=== PATIENT | male | born 1950 | race Hispanic/Latino ===

== ENCOUNTER 2017-12-22 10:19 | Inpatient (IN) | payer OTHER ==
[~2017-12-22] VITALS: Ht 198.1 cm; Wt 113.0 kg
[~2017-12-22 10:19] MED LIST: DIGO0.25 PO; DOXA1TAB2 PO; TAMS0.4C32 PO
[2017-12-22] MEDS ORDERED: ZOSYN 3.375GM+NS 50ML 50 ML IV ONE (12:13)
[2017-12-22 12:30] LABS: BASOPHILS % (AUTO) 0.9 % (0.0-5.0); EOSINOPHILS % (AUTO) 4.3 % (0.0-8.0); HEMATOCRIT 44.3 % (42-54); LYMPHOCYTES % (AUTO) 12.1 % (21.0-51.0); MEAN CORPUSCULAR HEMOGLOBIN 30.8 pg (27.0-33.0); MEAN CORPUSCULAR HGB CONC 34.6 g/dL (32.0-36.0); MEAN CORPUSCULAR VOLUME 89.1 fL (79-99); MONOCYTES % (AUTO) 5.6 % (3.0-13.0); NEUTROPHILS % (AUTO) 77.1 % (40.0-77.0); PLATELET COUNT (AUTO) 228 K/uL (130-400); RED BLOOD CELL COUNT(AUTO) 4.98 MIL/uL (4.50-6.20); RED CELL DISTRIBUTION WIDTH 13.4 % (11.0-15.5); WHITE BLOOD COUNT (AUTO) 11.1 K/uL (4.8-10.8)
[2017-12-22 12:45] LABS: POTASSIUM 4.3 mmol/L (3.5-5.1)
[2017-12-22 12:49] LABS: TOTAL PROTEIN, SERUM 7.4 g/dL (6.0-8.3)
[2017-12-22] MEDS ORDERED: VANCOMYCIN 1GM+NS 250ML 250 ML IV ONE (16:32)
[2017-12-22 17:33] VITALS: BP 148/74
[2017-12-22] MEDS ORDERED: LEVO500T89 PO (18:08)
[2017-12-22] MEDS ORDERED: METF500T6 PO (18:08)
[2017-12-22] MEDS ORDERED: WARF6TAB49 PO (18:08)
[2017-12-22] MEDS ORDERED: SIMV20TA6 PO (18:08)
[2017-12-22] MEDS ORDERED: METO-391 PO (18:08)
[2017-12-22] MEDS ORDERED: TRAM50TA4 PO (18:09)
[2017-12-22] MEDS ORDERED: SODIUM CHLORIDE 0.9% 10 ML VIAL IVP PRN (18:30)
[2017-12-22] MEDS ORDERED: VANCOMYCIN PROTOCOL PER PHARMACY IV SCH (18:30)
[2017-12-22] MEDS ORDERED: ACETAMINOPHEN 325 MG TAB PO PRN (18:30)
[2017-12-22 19:58] VITALS: BP 128/85
[2017-12-22] MEDS ORDERED: COMPOUND IV REFRIGERATED 1 EACH IVSOLN MISC PRN (20:00)
[2017-12-22] MEDS ORDERED: GLUCAGON 1MG KIT 1 MG ML IM PRN (20:45)
[2017-12-22] MEDS ORDERED: INSULIN GLARGINE 100 UNITS/ML 10 ML VIAL SQ ONE (20:45)
[2017-12-22] MEDS ORDERED: DEXTROSE 50%-WATER 50 ML DISP.SYRIN IV PRN (20:45)
[2017-12-22] MEDS: METOPROLOL TARTRATE 25 MG TAB PO SCH ×2 (21:00→21:49)
[2017-12-22] MEDS: ZOSYN 3.375GM+NS 50ML 50 ML IV SCH ×2 (21:50→23:32)
[2017-12-22] MEDS: INSULIN HUMULIN R 100 UNIT/ML 3ML SQ SCH (21:55)
[2017-12-22] MEDS: TRAMADOL HCL 50 MG TABLET PO PRN (22:00)
[2017-12-22] MEDS: VANCOMYCIN 1.5 GM in SODIUM CHLORIDE 0.9% 250 ML IV SCH (22:06)
[2017-12-23] VITALS (7 sets, daily range): BP systolic 112–132; BP diastolic 50–89
[2017-12-23] MEDS: TRAMADOL HCL 50 MG TABLET PO PRN ×3 (03:24→15:45)
[2017-12-23] MEDS: ZOSYN 3.375GM+NS 50ML 50 ML IV SCH ×3 (06:47→21:24)
[2017-12-23] MEDS: INSULIN HUMULIN R 100 UNIT/ML 3ML SQ SCH ×5 (06:48→21:31)
[2017-12-23 08:06] LABS: INR 1.15 (0.85-1.15)
[2017-12-23] MEDS: ATORVASTATIN CALCIUM 10 MG TABLET PO SCH (08:25)
[2017-12-23] MEDS: METOPROLOL TARTRATE 25 MG TAB PO SCH ×2 (08:25→21:24)
[2017-12-23] MEDS: VANCOMYCIN 1.5 GM in SODIUM CHLORIDE 0.9% 250 ML IV SCH ×2 (08:26→20:11)
[2017-12-23] MEDS: WARFARIN SODIUM 2 MG TAB PO SCH (15:44)
[2017-12-23] MEDS ORDERED: WARFARIN SODIUM 10 MG TABLET PO SCH (16:00)
[2017-12-23] MEDS: TAMSULOSIN HCL 0.4 MG CAP.ER.24H PO SCH (21:24)
[2017-12-23] MEDS: DOXAZOSIN MESYLATE 2 MG TABLET PO SCH (21:24)
[2017-12-24] MEDS: TRAMADOL HCL 50 MG TABLET PO PRN ×3 (00:39→17:38)
[2017-12-24 03:00] VITALS: BP 132/81
[2017-12-24] MEDS: ZOSYN 3.375GM+NS 50ML 50 ML IV SCH ×3 (04:41→22:53)
[2017-12-24] MEDS: INSULIN HUMULIN R 100 UNIT/ML 3ML SQ SCH ×5 (06:30→22:48)
[2017-12-24 07:00] VITALS: BP 147/71
[2017-12-24] MEDS: VANCOMYCIN 1.5 GM in SODIUM CHLORIDE 0.9% 250 ML IV SCH ×3 (09:00→22:53)
[2017-12-24] MEDS: ATORVASTATIN CALCIUM 10 MG TABLET PO SCH (09:42)
[2017-12-24] MEDS: METOPROLOL TARTRATE 25 MG TAB PO SCH ×2 (09:42→22:52)
[2017-12-24] MEDS ORDERED: VANCOMYCIN 2 GM in SODIUM CHLORIDE 0.9% 500ML 500 ML IV SCH (11:00)
[2017-12-24 12:13] VITALS: BP 118/73
[2017-12-24] MEDS ORDERED: VANCOMYCIN 1.75 GM in SODIUM CHLORIDE 0.9% 250 ML IV ONE (16:00)
[2017-12-24 16:44] VITALS: BP 136/75
[2017-12-24] MEDS: WARFARIN SODIUM 2 MG TAB PO SCH (17:34)
[2017-12-24 20:00] VITALS: BP 157/99
[2017-12-24] MEDS: INSULIN GLARGINE 100 UNITS/ML 10 ML VIAL SQ SCH (22:46)
[2017-12-24] MEDS: TAMSULOSIN HCL 0.4 MG CAP.ER.24H PO SCH (22:52)
[2017-12-24] MEDS: DOXAZOSIN MESYLATE 2 MG TABLET PO SCH (22:52)
[2017-12-24] MEDS ORDERED: INSULIN GLARGINE 100 UNITS/ML 10 ML VIAL SQ ONE (23:07)
[2017-12-24 23:54] VITALS: BP 128/68
[2017-12-25] MEDS ORDERED: VANCOMYCIN 1GM+NS 250ML 250 ML IV SCH
[2017-12-25] MEDS: TRAMADOL HCL 50 MG TABLET PO PRN ×3 (01:13→13:32)
[2017-12-25 04:00] VITALS: BP 109/60
[2017-12-25 05:17] LABS: BASOPHILS % (AUTO) 1.2 % (0.0-5.0); EOSINOPHILS % (AUTO) 8.9 % (0.0-8.0); HEMATOCRIT 41.7 % (42-54); LYMPHOCYTES % (AUTO) 21.4 % (21.0-51.0); MEAN CORPUSCULAR HEMOGLOBIN 31.7 pg (27.0-33.0); MEAN CORPUSCULAR HGB CONC 35.7 g/dL (32.0-36.0); MEAN CORPUSCULAR VOLUME 88.8 fL (79-99); NEUTROPHILS % (AUTO) 62.5 % (40.0-77.0); NUCLEATED RED BLOOD CELLS 0.1 % (0.0-0.19); PLATELET COUNT (AUTO) 259 K/uL (130-400); RED CELL DISTRIBUTION WIDTH 13.1 % (11.0-15.5); WHITE BLOOD COUNT (AUTO) 9.8 K/uL (4.8-10.8)
[2017-12-25] MEDS: ZOSYN 3.375GM+NS 50ML 50 ML IV SCH ×3 (05:27→21:16)
[2017-12-25] MEDS: VANCOMYCIN 1.5 GM in SODIUM CHLORIDE 0.9% 250 ML IV SCH ×3 (05:28→21:16)
[2017-12-25 05:38] LABS: CREATININE 0.8 mg/dL (0.5-1.5); POTASSIUM 3.4 mmol/L (3.5-5.1)
[2017-12-25] MEDS: INSULIN HUMULIN R 100 UNIT/ML 3ML SQ SCH ×4 (06:29→21:35)
[2017-12-25 08:00] VITALS: BP 126/77
[2017-12-25 09:18] LABS: INR 1.29 (0.85-1.15); PROTHROMBIN TIME 13.5 SEC (9.6-11.6)
[2017-12-25] MEDS: METOPROLOL TARTRATE 25 MG TAB PO SCH ×2 (09:51→21:15)
[2017-12-25] MEDS: ATORVASTATIN CALCIUM 10 MG TABLET PO SCH (09:51)
[2017-12-25 11:39] VITALS: BP 120/72
[2017-12-25] MEDS ORDERED: POTASSIUM CHLORIDE 20 MEQ ERTAB PO PRN (14:15)
[2017-12-25] MEDS ORDERED: POTASSIUM CHLORIDE 10% ELIXIR 20 MEQ/15 ML UDCUP PO PRN (14:15)
[2017-12-25] MEDS: WARFARIN SODIUM 2 MG TAB PO SCH (15:19)
[2017-12-25 16:00] VITALS: BP 136/67
[2017-12-25 20:00] VITALS: BP 126/77
[2017-12-25] MEDS: DOXAZOSIN MESYLATE 2 MG TABLET PO SCH (21:14)
[2017-12-25] MEDS: HYDROCODONE/ACETAMINOPHEN 5/325 MG TAB PO PRN (21:14)
[2017-12-25] MEDS: TAMSULOSIN HCL 0.4 MG CAP.ER.24H PO SCH (21:15)
[2017-12-25] MEDS: INSULIN GLARGINE 100 UNITS/ML 10 ML VIAL SQ SCH (21:34)
[2017-12-25 23:46] VITALS: BP 111/59
[2017-12-26] VITALS (23 sets, daily range): BP systolic 102–143; BP diastolic 47–85
[2017-12-26] MEDS: MORPHINE SULFATE 2 MG/ML 1ML SYG IVP PRN ×3 (01:36→16:57)
[2017-12-26] MEDS: ZOSYN 3.375GM+NS 50ML 50 ML IV SCH ×3 (05:04→21:32)
[2017-12-26 05:05] LABS: BASOPHILS % (AUTO) 1.9 % (0.0-5.0); HEMATOCRIT 43.9 % (42-54); LYMPHOCYTES % (AUTO) 18.8 % (21.0-51.0); MEAN CORPUSCULAR HEMOGLOBIN 30.7 pg (27.0-33.0); MEAN CORPUSCULAR HGB CONC 34.4 g/dL (32.0-36.0); MEAN CORPUSCULAR VOLUME 89.4 fL (79-99); MONOCYTES % (AUTO) 6.2 % (3.0-13.0); NEUTROPHILS % (AUTO) 65.1 % (40.0-77.0); PLATELET COUNT (AUTO) 254 K/uL (130-400); RED BLOOD CELL COUNT(AUTO) 4.92 MIL/uL (4.50-6.20); RED CELL DISTRIBUTION WIDTH 13.1 % (11.0-15.5); WHITE BLOOD COUNT (AUTO) 10.6 K/uL (4.8-10.8)
[2017-12-26 05:12] LABS: CREATININE 0.9 mg/dL (0.5-1.5); POTASSIUM 4.3 mmol/L (3.5-5.1)
[2017-12-26] MEDS: VANCOMYCIN 1.5 GM in SODIUM CHLORIDE 0.9% 250 ML IV SCH (06:00)
[2017-12-26] MEDS: INSULIN HUMULIN R 100 UNIT/ML 3ML SQ SCH ×4 (07:30→21:00)
[2017-12-26] MEDS: HONEY 1 APPL/ML TUBE TP SCH (09:00)
[2017-12-26] MEDS: ATORVASTATIN CALCIUM 10 MG TABLET PO SCH (09:04)
[2017-12-26] MEDS: METOPROLOL TARTRATE 25 MG TAB PO SCH ×2 (09:04→22:22)
[2017-12-26 09:41] LABS: INR 1.18 (0.85-1.15); PROTHROMBIN TIME 12.3 SEC (9.6-11.6)
[2017-12-26] MEDS: SODIUM CHLORIDE 0.9% IV SCH ×2 (14:20→21:36)
[2017-12-26] MEDS: VANCOMYCIN 1.25 GM IV SCH ×2 (14:20→21:36)
[2017-12-26] MEDS: WARFARIN SODIUM 2 MG TAB PO SCH (14:23)
[2017-12-26] MEDS ORDERED: MIDAZOLAM HCL 1 MG/ML 2ML VIAL ONE (19:13)
[2017-12-26] MEDS ORDERED: PROPOFOL 10 MG/ML 20ML VIAL IV ONE (19:13)
[2017-12-26] MEDS ORDERED: BUPIVACAINE/PF 0.5% 30ML VIAL ONE (19:13)
[2017-12-26] MEDS ORDERED: FENTANYL CITRATE PF 50 MCG/1 ML 2ML VIAL ONE ×2 (19:13→19:40)
[2017-12-26] MEDS ORDERED: LIDOCAINE HCL-MPF 0.5% 50ML VIAL IJ ONE (19:13)
[2017-12-26] MEDS: TAMSULOSIN HCL 0.4 MG CAP.ER.24H PO SCH (21:33)
[2017-12-26] MEDS: DOXAZOSIN MESYLATE 2 MG TABLET PO SCH (21:33)
[2017-12-26] MEDS: HYDROMORPHONE 1 MG/1 ML AMP IVP PRN (21:43)
[2017-12-26] MEDS: INSULIN GLARGINE 100 UNITS/ML 10 ML VIAL SQ SCH (22:22)
[2017-12-27] VITALS (8 sets, daily range): BP systolic 103–138; BP diastolic 55–84
[2017-12-27] MEDS: HYDROCODONE/ACETAMINOPHEN 5/325 MG TAB PO PRN ×2 (00:37→11:43)
[2017-12-27] MEDS: ZOSYN 3.375GM+NS 50ML 50 ML IV SCH ×3 (05:02→21:49)
[2017-12-27] MEDS: TRAMADOL HCL 50 MG TABLET PO PRN (05:08)
[2017-12-27 05:55] LABS: EOSINOPHILS % (AUTO) 6.4 % (0.0-8.0); HEMATOCRIT 42.3 % (42-54); LYMPHOCYTES % (AUTO) 15.8 % (21.0-51.0); MEAN CORPUSCULAR HEMOGLOBIN 31.2 pg (27.0-33.0); MEAN CORPUSCULAR HGB CONC 34.7 g/dL (32.0-36.0); MEAN CORPUSCULAR VOLUME 89.8 fL (79-99); NEUTROPHILS % (AUTO) 70.8 % (40.0-77.0); PLATELET COUNT (AUTO) 270 K/uL (130-400); RED BLOOD CELL COUNT(AUTO) 4.71 MIL/uL (4.50-6.20); RED CELL DISTRIBUTION WIDTH 13.3 % (11.0-15.5); WHITE BLOOD COUNT (AUTO) 10.3 K/uL (4.8-10.8)
[2017-12-27] MEDS: VANCOMYCIN 1.25 GM IV SCH ×3 (06:00→22:02)
[2017-12-27] MEDS: SODIUM CHLORIDE 0.9% IV SCH ×3 (06:00→22:02)
[2017-12-27] MEDS: INSULIN HUMULIN R 100 UNIT/ML 3ML SQ SCH ×4 (06:34→21:50)
[2017-12-27 06:42] LABS: CREATININE 0.9 mg/dL (0.5-1.5)
[2017-12-27] MEDS: HONEY 1 APPL/ML TUBE TP SCH (09:00)
[2017-12-27 09:29] LABS: INR 1.12 (0.85-1.15); PROTHROMBIN TIME 11.7 SEC (9.6-11.6)
[2017-12-27] MEDS: METOPROLOL TARTRATE 25 MG TAB PO SCH ×2 (10:22→21:49)
[2017-12-27] MEDS: MORPHINE SULFATE 2 MG/ML 1ML SYG IVP PRN ×2 (13:10→20:05)
[2017-12-27] MEDS: WARFARIN SODIUM 2 MG TAB PO SCH (16:16)
[2017-12-27] MEDS ORDERED: WARFARIN SODIUM 10 MG TABLET ONE (16:30)
[2017-12-27] MEDS: WARFARIN SODIUM 10 MG TABLET PO SCH (16:32)
[2017-12-27] MEDS: TAMSULOSIN HCL 0.4 MG CAP.ER.24H PO SCH (21:49)
[2017-12-27] MEDS: DOXAZOSIN MESYLATE 2 MG TABLET PO SCH (21:49)
[2017-12-27] MEDS: ATORVASTATIN CALCIUM 10 MG TABLET PO SCH (21:50)
[2017-12-27] MEDS: INSULIN GLARGINE 100 UNITS/ML 10 ML VIAL SQ SCH (21:51)
[2017-12-27] MEDS: HYDROMORPHONE 1 MG/1 ML AMP IVP PRN (23:59)
[2017-12-28] VITALS: BP 138/77
[2017-12-28 04:00] VITALS: BP 121/64
[2017-12-28] MEDS: ZOSYN 3.375GM+NS 50ML 50 ML IV SCH ×3 (04:12→21:12)
[2017-12-28] MEDS: VANCOMYCIN 1.25 GM IV SCH ×3 (05:07→23:13)
[2017-12-28] MEDS: SODIUM CHLORIDE 0.9% IV SCH ×3 (05:07→23:13)
[2017-12-28 06:06] LABS: INR 1.05 (0.85-1.15); PARTIAL THROMBOPLASTIN TIME 27.6 SEC (26.3-35.5)
[2017-12-28] MEDS: INSULIN HUMULIN R 100 UNIT/ML 3ML SQ SCH ×4 (06:17→21:18)
[2017-12-28] MEDS: MORPHINE SULFATE 2 MG/ML 1ML SYG IVP PRN ×2 (06:24→11:53)
[2017-12-28 08:00] VITALS: BP 112/64
[2017-12-28] MEDS: HONEY 1 APPL/ML TUBE TP SCH (09:00)
[2017-12-28] MEDS: TRAMADOL HCL 50 MG TABLET PO PRN (09:39)
[2017-12-28 09:40] LABS: INR 1.07 (0.85-1.15); PROTHROMBIN TIME 11.2 SEC (9.6-11.6)
[2017-12-28 11:00] VITALS: BP 130/71
[2017-12-28] MEDS: METOPROLOL TARTRATE 25 MG TAB PO SCH ×2 (11:46→21:11)
[2017-12-28] MEDS: WARFARIN SODIUM 2 MG TAB PO SCH (15:55)
[2017-12-28] MEDS: WARFARIN SODIUM 10 MG TABLET PO SCH (15:55)
[2017-12-28 16:00] VITALS: BP 127/78
[2017-12-28] MEDS: HYDROCODONE/ACETAMINOPHEN 5/325 MG TAB PO PRN (18:22)
[2017-12-28 20:38] VITALS: BP 135/66
[2017-12-28] MEDS: TAMSULOSIN HCL 0.4 MG CAP.ER.24H PO SCH (21:10)
[2017-12-28] MEDS: DOXAZOSIN MESYLATE 2 MG TABLET PO SCH (21:11)
[2017-12-28] MEDS: ATORVASTATIN CALCIUM 10 MG TABLET PO SCH (21:11)
[2017-12-28] MEDS: INSULIN GLARGINE 100 UNITS/ML 10 ML VIAL SQ SCH (21:17)
[2017-12-29] VITALS (7 sets, daily range): BP systolic 100–138; BP diastolic 53–69
[2017-12-29] MEDS: HYDROCODONE/ACETAMINOPHEN 5/325 MG TAB PO PRN ×3 (00:28→18:06)
[2017-12-29] MEDS: MORPHINE SULFATE 2 MG/ML 1ML SYG IVP PRN ×2 (03:07→15:33)
[2017-12-29] MEDS: ZOSYN 3.375GM+NS 50ML 50 ML IV SCH ×3 (04:43→20:37)
[2017-12-29 06:28] LABS: BASOPHILS % (AUTO) 1.5 % (0.0-5.0); EOSINOPHILS % (AUTO) 7.7 % (0.0-8.0); HEMATOCRIT 41.8 % (42-54); LYMPHOCYTES % (AUTO) 19.9 % (21.0-51.0); MEAN CORPUSCULAR HEMOGLOBIN 31.7 pg (27.0-33.0); MEAN CORPUSCULAR HGB CONC 35.4 g/dL (32.0-36.0); MEAN CORPUSCULAR VOLUME 89.6 fL (79-99); MONOCYTES % (AUTO) 7.4 % (3.0-13.0); NEUTROPHILS % (AUTO) 63.5 % (40.0-77.0); NUCLEATED RED BLOOD CELLS 0.1 % (0.0-0.19); PLATELET COUNT (AUTO) 248 K/uL (130-400); RED BLOOD CELL COUNT(AUTO) 4.66 MIL/uL (4.50-6.20); RED CELL DISTRIBUTION WIDTH 13.6 % (11.0-15.5); WHITE BLOOD COUNT (AUTO) 10.4 K/uL (4.8-10.8)
[2017-12-29] MEDS: INSULIN HUMULIN R 100 UNIT/ML 3ML SQ SCH ×4 (06:31→20:50)
[2017-12-29] MEDS: VANCOMYCIN 1.25 GM IV SCH ×3 (06:34→22:01)
[2017-12-29] MEDS: SODIUM CHLORIDE 0.9% IV SCH ×3 (06:34→22:01)
[2017-12-29 06:37] LABS: CREATININE 0.8 mg/dL (0.5-1.5); POTASSIUM 4.1 mmol/L (3.5-5.1)
[2017-12-29 09:27] LABS: INR 1.24 (0.85-1.15)
[2017-12-29] MEDS: METOPROLOL TARTRATE 25 MG TAB PO SCH ×2 (09:55→20:38)
[2017-12-29] MEDS: WARFARIN SODIUM 2 MG TAB PO SCH (15:34)
[2017-12-29] MEDS: DOXAZOSIN MESYLATE 2 MG TABLET PO SCH (20:37)
[2017-12-29] MEDS: TAMSULOSIN HCL 0.4 MG CAP.ER.24H PO SCH (20:38)
[2017-12-29] MEDS: ATORVASTATIN CALCIUM 10 MG TABLET PO SCH (20:38)
[2017-12-29] MEDS: INSULIN GLARGINE 100 UNITS/ML 10 ML VIAL SQ SCH (20:44)
[2017-12-30] MEDS: HYDROMORPHONE 1 MG/1 ML AMP IVP PRN (03:23)
[2017-12-30 03:46] VITALS: BP 121/50
[2017-12-30] MEDS: ZOSYN 3.375GM+NS 50ML 50 ML IV SCH ×2 (05:01→13:02)
[2017-12-30 05:21] LABS: BASOPHILS % (AUTO) 1.2 % (0.0-5.0); EOSINOPHILS % (AUTO) 7.8 % (0.0-8.0); LYMPHOCYTES % (AUTO) 18.4 % (21.0-51.0); MEAN CORPUSCULAR HEMOGLOBIN 30.8 pg (27.0-33.0); MEAN CORPUSCULAR HGB CONC 34.3 g/dL (32.0-36.0); MEAN CORPUSCULAR VOLUME 89.9 fL (79-99); NEUTROPHILS % (AUTO) 65.6 % (40.0-77.0); PLATELET COUNT (AUTO) 259 K/uL (130-400); RED BLOOD CELL COUNT(AUTO) 4.78 MIL/uL (4.50-6.20); RED CELL DISTRIBUTION WIDTH 13.7 % (11.0-15.5); WHITE BLOOD COUNT (AUTO) 10.8 K/uL (4.8-10.8)
[2017-12-30 05:26] LABS: CREATININE 0.9 mg/dL (0.5-1.5); POTASSIUM 3.9 mmol/L (3.5-5.1)
[2017-12-30] MEDS: INSULIN HUMULIN R 100 UNIT/ML 3ML SQ SCH ×3 (05:35→17:41)
[2017-12-30] MEDS: VANCOMYCIN 1.25 GM IV SCH ×2 (06:00→13:04)
[2017-12-30] MEDS: SODIUM CHLORIDE 0.9% IV SCH ×2 (06:00→13:04)
[2017-12-30 07:46] VITALS: BP 111/53
[2017-12-30] MEDS: METOPROLOL TARTRATE 25 MG TAB PO SCH (09:21)
[2017-12-30 09:43] LABS: INR 1.27 (0.85-1.15); PROTHROMBIN TIME 13.3 SEC (9.6-11.6)
[2017-12-30 12:42] VITALS: BP 147/65
[2017-12-30] MEDS: MORPHINE SULFATE 2 MG/ML 1ML SYG IVP PRN ×2 (13:02→17:54)
[2017-12-30 16:18] VITALS: BP 118/64
[2017-12-30] MEDS: WARFARIN SODIUM 2 MG TAB PO SCH (17:59)
[2017-12-30] MEDS ORDERED: WARFARIN SODIUM 2 MG TAB PO SCH (18:00)
[2017-12-30 19:58] VITALS: BP 112/52
[2017-12-31] MEDS ORDERED: WARFARIN SODIUM 2 MG TAB PO SCH (18:00)
== END 2017-12-30 19:56 | DRG 623 ==
LOC: EDH 10:19 → EDHIP 11:37 → 3DH 17:22
PROVIDERS: ADMIT Family Medicine; ATTEND Family Medicine
PROC: 0JBQ0ZZ Excision of Right Foot Subcutaneous Tissue and Fascia, Open Approach (ICD-10-PCS; principal; 2017-12-26 18:15)
PROC: 02HV33Z Insertion of Infusion Device into Superior Vena Cava, Percutaneous Approach (ICD-10-PCS; 2017-12-29)
DX: E11.621 Type 2 diabetes mellitus with foot ulcer (principal); L03.115 Cellulitis of right lower limb; L02.611 Cutaneous abscess of right foot; L97.909 Non-pressure chronic ulcer of unspecified part of unspecified lower leg with unspecified severity; L02.415 Cutaneous abscess of right lower limb; I48.91 Unspecified atrial fibrillation; E11.51 Type 2 diabetes mellitus with diabetic peripheral angiopathy without gangrene; E11.65 Type 2 diabetes mellitus with hyperglycemia; E78.5 Hyperlipidemia, unspecified; I10 Essential (primary) hypertension; I83.009 Varicose veins of unspecified lower extremity with ulcer of unspecified site; E66.9 Obesity, unspecified; R20.8 Other disturbances of skin sensation; M72.9 Fibroblastic disorder, unspecified; I48.2 Chronic atrial fibrillation; L97.519 Non-pressure chronic ulcer of other part of right foot with unspecified severity; F17.210 Nicotine dependence, cigarettes, uncomplicated; R79.1 Abnormal coagulation profile; N40.0 Benign prostatic hyperplasia without lower urinary tract symptoms; Z82.49 Family history of ischemic heart disease and other diseases of the circulatory system; Z79.84 Long term (current) use of oral hypoglycemic drugs; Z83.3 Family history of diabetes mellitus; Z79.899 Other long term (current) drug therapy; Z79.01 Long term (current) use of anticoagulants; Z68.28 Body mass index [BMI] 28.0-28.9, adult; Z90.49 Acquired absence of other specified parts of digestive tract
CPT/HCPCS: 10060; 36415; 71045; 73718; 80048; 80053; 80202; 82947; 82948; 85025; 85610; 85730; 87070; 87076; 87205; 93925; 97039; C1894; J1170; J1815; J2250; J2543; J2704; J3010; J3370; J3490; J7030; J7040; J7070